=== PATIENT | male | born 1985 | race Caucasian/White ===

== ENCOUNTER 2019-04-12 07:37 | Emergency (ER) | payer OTHER ==
[~2019-04-12] VITALS: Ht 175.3 cm; Wt 108.9 kg
[2019-04-12 07:37] VITALS: BP_SYST 125
[2019-04-12] MEDS ORDERED: NACL 0.9% 1,000 ML IV ONE (08:00)
[2019-04-12] MEDS ORDERED: KETOROLAC TROMETHAMINE 30 MG VIAL IVP ONE (08:00)
[2019-04-12 08:35] LABS: BASOPHILS % (AUTO) 0.2 % (0.0-2.0); EOSINOPHILS # (AUTO) 0.1 K/uL (0.0-0.4); EOSINOPHILS % (AUTO) 1.1 % (0.0-4.0); HEMATOCRIT 42.5 % (36-54); HEMOGLOBIN 14.7 g/dL (14.0-18.0); LYMPHOCYTES # (AUTO) 1.3 K/uL (1.0-5.5); LYMPHOCYTES % (AUTO) 10.9 % (20.5-51.5); MEAN CORPUSCULAR HEMOGLOBIN 32 pg (27-31); MEAN CORPUSCULAR HGB CONC 35 % (32-36); MEAN CORPUSCULAR VOLUME 93 fL (79.0-98.0); MONOCYTES # (AUTO) 1.7 K/uL (0.0-1.0); MONOCYTES % (AUTO) 14.4 % (1.7-9.3); NEUTROPHILS # (AUTO) 8.7 K/uL (1.8-7.7); NEUTROPHILS % (AUTO) 73.4 % (40.0-70.0); PLATELET COUNT (AUTO) 188 K/uL (130-430); RED BLOOD CELL COUNT(AUTO) 4.58 MIL/uL (4.2-6.2); RED CELL DISTRIBUTION WIDTH 12.4 % (9.0-15.0); WHITE BLOOD COUNT (AUTO) 11.8 K/uL (4.8-10.8)
[2019-04-12 08:38] LABS: CREATININE 1.04 mg/dL (0.55-1.30); POTASSIUM 4.5 mmol/L (3.5-5.1)
[2019-04-12 08:43] LABS: ALBUMIN 3.7 g/dL (3.4-4.8); TOTAL BILIRUBIN 1.4 mg/dL (0.0-1.0)
[2019-04-12 10:32] VITALS: BP_SYST 125
== END 2019-04-12 10:28 | disposition home or self-care (01) ==
LOC: SED 07:37
DX: J02.0 Streptococcal pharyngitis (principal); R53.1 Weakness
CPT/HCPCS: 36415; 80053; 83605; 85025; 87040; 96374; 99283; J1885

== ENCOUNTER 2019-05-03 11:35 | Emergency (ER) | payer OTHER ==
[~2019-05-03] VITALS: Ht 177.8 cm; Wt 104.3 kg
[2019-05-03 11:35] VITALS: BP_SYST 151
[2019-05-03 12:14] VITALS: BP_SYST 151
== END 2019-05-03 12:14 | disposition home or self-care (01) ==
LOC: SED 11:35
DX: J06.9 Acute upper respiratory infection, unspecified (principal)
CPT/HCPCS: 99283

== ENCOUNTER 2022-02-07 21:21 | Emergency (ER) | payer OTHER ==
[~2022-02-07] VITALS: Ht 177.8 cm; Wt 108.9 kg
--- NOTE | 2022-02-07 22:21 | NUR ---
ER in triage examining patient.
[2022-02-07 22:25] VITALS: BP_SYST 140
--- NOTE | 2022-02-07 22:30 | NUR ---
Patient triaged and placed in waiting room. VS checked and patient appears in no acute distress at this time. Accompanied by , awaiting available bed, and MD notified of need for MSE.
[2022-02-07] MEDS ORDERED: IBUPROFEN 600 MG TABLET PO ONE (23:30)
[2022-02-07] MEDS ORDERED: HYDROcodone/ACETAMIN 5-325 MG TAB (NORCO/ VICODIN) PO ONE (23:30)
--- NOTE | 2022-02-08 00:45 | NUR ---
Patient ambulatory to bed 4 for irrigation of left ear
[2022-02-08] MEDS ORDERED: NAPR-686 PO (01:11)
[2022-02-08] MEDS ORDERED: NEOMYCIN/POLYMYX B/HYDROCORTISONE 10 ML EAR DROPS.SUSP OT ONE (01:15)
[2022-02-08 01:27] VITALS: BP_SYST 136
--- NOTE | 2022-02-08 01:27 | NUR ---
Patient given written and verbal discharge instructions and verbalizes understanding. ER MD discussed with patient the results and treatment provided. Patient in stable condition. ID arm band removed. Rx of TYLENOL #3, NAPROXEN AND CORTISPORIN given. Patient educated on pain management and to follow up with PMD. Pain Scale 0/10 Opportunity for questions provided and answered. Medication side effect fact sheet provided.
== END 2022-02-08 01:27 | disposition home or self-care (01) ==
LOC: SED 21:21
DX: H60.502 Unspecified acute noninfective otitis externa, left ear (principal); B34.9 Viral infection, unspecified; Z20.822 Contact with and (suspected) exposure to COVID-19
CPT/HCPCS: 36415; 99283